=== PATIENT | female | born 2005 | race Caucasian/White ===

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

== ENCOUNTER 2024-09-20 07:58 | Inpatient (IN) | payer OTHER ==
--- NOTE | 2024-09-20 08:05 | P.HPOB ---
History of Present Illness H&P Date: 09/20/24 Chief Complaint: Medical induction of labor Ms. Peters is a 19 year old at 37 weeks and 0 days gestation with DONTRELL of 10/11/2024 by LMP consistent with 9 week US who presents for medical induction of labor for severe IUGR with abdominal circumference in the 1st percentile (efw 9.5%). The fetus has undergone surveillance which has been reassuring. work-up: blood type O positive, antibody screen negative, rubella non- immune, VDRL non-reactive, HBsAg negative, HIV negative, HCV non-reactive, gonorrhea negative, chlamydia negative, 1 hour GTT wnl. GBS positive. Past Medical History Past Medical History: Asthma, GERD/Reflux Additional Past Medical History / Comment(s): gallstones History of Any Multi-Drug Resistant Organisms: None Reported Past Surgical History: Adenoidectomy, Tonsillectomy Additional Past Surgical History / Comment(s): Ear tubes. Past Anesthesia/Blood Transfusion Reactions: No Reported Reaction Past Psychological History: ADD/ADHD, Depression Additional Psychological History / Comment(s): ADHD Past Alcohol Use History: None Reported Additional Past Alcohol Use History / Comment(s): father smokes but outside only Past Drug Use History: None Reported - Past Family History Father Family Medical History: Hypertension Mother Family Medical History: Fibromyalgia Additional Family Medical History / Comment(s): Mother: bipolar, anxiety, OCD. herniated disk Medications and Allergies Home Medications Medication Instructions Recorded Confirmed Type Albuterol Inhaler [Ventolin Hfa 2 puff INHALATION RT-Q6H PRN 08/14/18 08/14/18 History Inhaler] Beclomethasone Dipropionate [Qvar 1 puff INHALATION RT-DAILY 08/14/18 08/14/18 History 80 mcg] Cetirizine HCl [Zyrtec] 10 mg PO DAILY 08/14/18 08/14/18 History Montelukast [Singulair] 10 mg PO HS 08/14/18 08/14/18 History Omeprazole 20 mg PO DAILY 08/14/18 08/14/18 History Venlafaxine HCl ER [Effexor Xr] 37.5 mg PO DAILY 08/14/18 08/14/18 History Allergies Allergy/AdvReac Type Severity Reaction Status Date / Time No Known Allergies Allergy Verified 08/14/18 20:44 Exam Focused physical exam is performed. This is a healthy-appearing in no apparent distress. Breathing is non-labored. Abdomen is gravid and non-tender. Cervical exam is closed/long/high. Extremities non-tender and non-edematous. heart tones are reactive and reassuring. Assessment and Plan Assessment: 19 year old at 37 weeks gestation here for medical induction of labor for IUGR Plan: Admit, regular diet, plan for Dilapan-S x24 hours. Will then move to oxytocin and AROM tomorrow morning.
[2024-09-20 09:33] LABS: Basophils % (A) 0 %; Eosinophils % (A) 0 %; HCT 38.3 % (34.0-46.0); HGB 12.4 gm/dL (11.4-16.0); Lymphocytes # (A) 1.3 k/uL (1.0-4.8); Lymphocytes % (A) 13 %; MCH 29.7 pg (25.0-35.0); MCHC 32.4 g/dL (31.0-37.0); MCV 91.5 fL (80.0-100.0); Mean Platelet Volume 7.4; Monocytes # (A) 0.9 k/uL (0-1.0); Monocytes % (A) 9 %; Neutrophils # (A) 7.2 k/uL (1.3-7.7); Neutrophils % (A) 74 %; Platelet Count 262 k/uL (150-450); RBC 4.18 m/uL (3.80-5.40); RDW 12.7 % (11.5-15.5); WBC 9.8 k/uL (4.0-11.0)
[2024-09-20] MEDS: LACTATED RINGERS 1,000 ML IV SCH (09:33)
[2024-09-20] MEDS: OXYTOCIN 30 UNITS/500 ML NS 30 UNIT in SALINE 1 500ML.BAG IV SCH (13:40)
[2024-09-20] MEDS ORDERED: CARBOPROST TROMETHAMINE 250 MCG/ML 1 ML AMP IM PRN (15:10)
[2024-09-20] MEDS ORDERED: miSOPROStoL 200 MCG TAB RECTAL PRN (15:10)
[2024-09-20] MEDS ORDERED: TRANEXAMIC 1,000 MG/100ML-NACL 1,000 MG in EMPTY BAG 1 BAG IV PRN (15:10)
[2024-09-20] MEDS ORDERED: TERBUTALINE 1 MG/ML VIAL SQ PRN (15:10)
[2024-09-20] MEDS ORDERED: miSOPROStoL 200 MCG TAB PO PRN (15:10)
[2024-09-20] MEDS ORDERED: LIDOCAINE 0.5% (PF) 5 MG/ML (50 ML SDV) SQ PRN (15:10)
[2024-09-20] MEDS ORDERED: OXYTOCIN 10 UNIT/ML 1 ML VIAL IM PRN (15:10)
[2024-09-20] MEDS ORDERED: METHYLERGONOVINE 0.2 MG/ML 1 ML AMP IM PRN ×2 (15:10→23:08)
[2024-09-20] MEDS ORDERED: OXYTOCIN 30 UNITS/500 ML NS 30 UNIT in SALINE 1 500ML.BAG IV SCH (15:15)
[2024-09-20] MEDS: PENICILLIN G POTASSIUM 5,000,000 UNIT in DEXTROSE 5% IN WATER 100 ML IVPB STA (16:10)
[2024-09-20] MEDS ORDERED: SODIUM CHLORIDE 0.9% 250 ML BAG ONE (18:28)
[2024-09-20] MEDS ORDERED: ROPIVACAINE 5 MG/ML 30 ML VIAL ONE (18:28)
[2024-09-20] MEDS ORDERED: fentaNYL (PF) 50 MCG/ML 5 ML AMP ONE (18:28)
[2024-09-20] MEDS: PENICILLIN G POTASSIUM 2,500,000 UNIT in DEXTROSE 5% IN WATER 100 ML IVPB SCH (20:24)
[2024-09-20] MEDS: CITRIC ACID-SODIUM CITRATE 15 ML CUP PO ONE (23:17)
[2024-09-20] MEDS ORDERED: ONDANSETRON 4 MG/2 ML VIAL ONE (23:23)
[2024-09-20] MEDS ORDERED: PHENYLEPHRINE-0.9% NACL SYG 1,000 MCG/10 ML SYRINGE ONE (23:23)
[2024-09-20] MEDS ORDERED: MORPHINE SULFATE (PF) 0.3 MG/0.3 ML SYR ONE (23:23)
[2024-09-20] MEDS ORDERED: KETOROLAC 15 MG/ML 1 ML VIAL ONE (23:23)
[2024-09-20] MEDS ORDERED: OXYTOCIN 30 UNITS/500 ML NS BAG IV ONE (23:23)
[2024-09-21] MEDS ORDERED: diphenhydrAMINE 50 MG/ML 1 ML VIAL IVP PRN ×2 (00:12)
[2024-09-21] MEDS ORDERED: NALOXONE 0.4 MG/ML 1 ML VIAL IV PRN (00:12)
[2024-09-21] MEDS ORDERED: diphenhydrAMINE 25 MG CAP PO PRN (00:12)
[2024-09-21] MEDS ORDERED: diphenhydrAMINE 50 MG CAP PO PRN (00:12)
[2024-09-21] MEDS ORDERED: SIMETHICONE 80 MG CHEWABLE PO PRN (00:12)
[2024-09-21] MEDS ORDERED: METOCLOPRAMIDE 5 MG/ML 2 ML VIAL IVP PRN (00:12)
[2024-09-21] MEDS ORDERED: ZOLPIDEM 5 MG TAB PO PRN (00:12)
[2024-09-21] MEDS ORDERED: ONDANSETRON 4 MG/2 ML VIAL IVP PRN (00:12)
--- NOTE | 2024-09-21 00:12 | P.OP ---
Date of Procedure: 09/21/24 Preoperative Diagnosis: 1. Term IUP at 37 weeks 2. Persistent Category II FHTs remote from delivery Postoperative Diagnosis: Same Procedure(s) Performed: Primary Lower Transverse Section Implants: None Anesthesia: epidural Surgeon: Fauzia Moreno Rn Occupational Health #1: Lyndsey Barnard Estimated Blood Loss (ml): 270 IV fluids (ml): 700 Urine output (ml): 400 Pathology: other (placenta) Condition: stable Disposition: floor Indications for Procedure: Ms. Peters is a 19 year old at 37 weeks who presented to labor and delivery for induction of labor for IUGR. Dilapan-S was inserted with AROM noted at the time of insertion. Pitocin was titrated per protocol. When the Dilapan-S was removed, the patient was dilated to 4 centimeters. Over the course of the next few hours, the patient began to develop intermittent lates and variables. Category II FHT managed following algorithm including initiation of corrective measure repositioning the patient, bolusing IV fluids, and pausing the pitocin. With the persistent presence of recurrent lates, a patient-centered huddle was held and the need for an expedited deliver was discussed with the patient. It is was clinical recommendation to proceed with the delivery and after questions were answered to the patient agrees to proceed with the recommended plan. The risks, benefits, and alternatives to section were discussed with the patient including risk of bleeding, infection, damage to surrounding structures including bladder/bowels/ureters, and post-operative VTE. The patient understands these risks and desires to proceed with section. Operative Findings: Viable male in cephalic presentation. Colorless amniotic fluid. Apgars 7/9. Weight 5 pounds and 13 ounces (2640 grams). Normal uterus, fallopian tubes, and ovaries. Description of Procedure: The patient was taken back to the operating room where spinal anesthesia was fou nd to be adequate. Two grams of Ancef were given for infection prophylaxis. Vaginal preparation was done. She was prepared and draped in the dorsal supine position with a leftward tilt. A Pfannenstiel skin incision was made with the scalpel. The incision was carried down to the fascia with a bovie. The fascia was incised and extended laterally with Matthews scissors. The superior aspect of the fascia was grasped with the Srinath clamps. The underlying rectus muscle was dissected off sharply with Matthews scissors. In a similar fashion, the inferior aspect of the fascia was elevated with Srinath clamps and the rectus muscle and pyramidalis were dissected off. Excellent hemostasis was achieved with the bovie. The rectus muscle was in the midline down to the level of the pubic symphysis. Pre-peritoneal fatty tissue was bluntly dissected to expose the peritoneum. The peritoneum was found to be free of adherent bowel and entered sharply with Matthews scissors. The peritoneal incision was extended superiorly and inferiorly to the bladder reflection with good visualization of the bladder. The bladder blade was inserted and vesicouterine peritoneum was identified. Intraabdominal survey revealed scant, clear peritoneal fluid and the thinned-out lower uterine segment. The vesicouterine peritoneum was opened with scissors and the bladder flap was developed. The bladder blade was repositioned to keep the bladder out of the operative field. The lower uterine segment was incised with a scalpel. The amniotic sac was ruptured with an Allis clamp and clear fluid was noted. The uterine incision was extended bluntly with lateral and upward traction. The fetus was in cephalic presentation. The head was elevated out of the pelvis with special attention paid to avoid using the uterine incision as a fulcrum. Gentle fundal pressure was applied once the head was brought into the incision. The infant was delivered with no difficulty and was noted to be crying spontaneously. The mouth and nose were suctioned with a bulb. The cord was clamped and cut. The was handed off to the knitted cloth examiner. IV oxytocin was initiated to facilitate uterine contractions. The placenta was delivered intact with manual massage of uterine fundus. The uterus was then exteriorized and the inside of the uterus was gently wiped with a lap sponge to assure complete removal of placental membranes. The uterine incision was closed with 0-Vicryl suture in a running locked fashion. The ovaries and tubes were found to be normal. The uterus, tubes, and ovaries were then gently returned to the abdominal cavity. The abdomen was copiously suction irrigated. The uterine incision was reinspected and excellent hemostasis was noted. The fascial layer was closed with a 0-Vicryl suture. The subcutaneous tissue was reapproximated with 2-0 Plain Gut. The skin was closed with 4-0 Monocryl in a subcuticular fashion.The patient tolerated the procedure well. All the counts were correct times two. The patient was taken to the recovery room in a stable condition. A physician surgical elastic knitter was utilized for the entire procedure due to the need for tissue retraction, dissection of vital structures, prevention and manag ement of blood loss, and reduction in overall operative and anesthesia time as is the standard of care.
[2024-09-21] MEDS: KETOROLAC 15 MG/ML 1 ML VIAL IVP SCH (00:52)
[2024-09-21] MEDS: ACETAMINOPHEN TAB 500 MG TAB PO SCH (02:13)
[2024-09-21] MEDS: LACTATED RINGERS 1,000 ML IV SCH (06:30)
[2024-09-21] MEDS: SENNOSIDES-DOCUSATE SODIUM 1 EACH TAB PO SCH (08:40)
--- NOTE | 2024-09-21 09:12 | P.PNOBGPC ---
Subjective - Subjective Principal diagnosis: s/p primary section Interval history: The patient is doing well this morning and had no acute events overnight. She has no complaints this morning. She reports minimal lochia, passing flatus, ambulating, and eating/drinking without nausea or vomiting. Maldonado catheter just removed, awaiting spontaneous void. She is breast feeding her infant without difficulty. She denies chest pain, shortness of breathing, fevers, or chills overnight. She denies pain or swelling in the legs. Patient reports: Reports appetite normal, Reports pain well controlled, Reports ambulating normally : doing well, nursing well Objective - Vital Signs Latest vital signs: Vital Signs Temp Pulse Resp BP Pulse Ox 09/21/24 04:10 97.4 F L 85 16 110/71 96 09/21/24 02:10 97.5 F L 92 16 105/57 99 09/21/24 01:55 90 16 103/66 99 09/21/24 01:40 88 16 105/57 98 09/21/24 01:25 98.9 F 100 16 97/53 95 09/21/24 01:10 101 H 16 109/57 96 09/21/24 00:55 93 16 115/65 96 09/21/24 00:40 91 16 105/63 97 09/21/24 00:25 105 H 16 100/60 96 09/21/24 00:10 98.1 F 102 H 16 99/59 97 Intake and Output 09/20/24 09/21/24 09/21/24 22:59 06:59 14:59 Output Total 300 1180 Balance -300 -1180 Output: Urine 300 800 Uretheral (Maldonado) 700 Output, Quantitative 380 Blood Loss Other: Voiding Method Indwelling Catheter - Exam Extremities: Present: normal Abdomen: Present: normal appearance, soft Incision: Present: normal, dressed Uterus: Present: normal, firm Assessment and Plan Assessment: 19 year old now POD#1 s/p primary section for persistent Cat II FHTs remote from delivery Plan: 1. Postoperative. Patient doing well, meeting milestones appropriately. 2. Viable male at bedside. Breast feeding, doing well. Needs circ prior to discharge. Dispo: Anticipate discharge home tomorrow.
--- NOTE | 2024-09-21 10:38 | P.PN ---
Progress Note - Text Progress Note Date: 09/21/24 (3422) Anesthesia Postop day 1 Subjective: Status Post section with Duramorph. Patient seen and examined. Doing well without complaint. VAS 2 out of 10. No nausea vomiting or pruritus. Denies fever. Gross lower extremity strength intact. Spinal site intact without induration. Without apparent anesthetic complications. Objective: Vital signs reviewed Heart: Regular Rate Lungs: Good chest excursion Abdomen: Appears nondistended Assessment: Status post section with Duramorph postop day 1 Plan: 1. Continue current care with your medical management. Anticipated end to the duration of the Duramorph around surgery time today. You may see increased pain needs around this time. 2. This note was dictated using Rabbit software. Please be advised there is a potential for misspellings or errors in real estate sales supervisor.
[2024-09-21] MEDS: MEASLES-MUMPS-RUBELLA VACC/PF 12,500 UNIT/0.5 ML VIAL SQ ONE (14:54)
[2024-09-22] MEDS: IBUPROFEN 800 MG TAB PO SCH (00:08)
[2024-09-22 05:28] LABS: Basophils % (A) 0 %; Eosinophils # (A) 0.1 k/uL (0-0.7); Eosinophils % (A) 1 %; HCT 31.5 % (34.0-46.0); HGB 10.3 gm/dL (11.4-16.0); Lymphocytes # (A) 2.2 k/uL (1.0-4.8); Lymphocytes % (A) 15 %; MCH 30.1 pg (25.0-35.0); MCHC 32.8 g/dL (31.0-37.0); MCV 91.8 fL (80.0-100.0); Mean Platelet Volume 8.1; Monocytes # (A) 0.7 k/uL (0-1.0); Monocytes % (A) 5 %; Neutrophils % (A) 77 %; Platelet Count 234 k/uL (150-450); RBC 3.43 m/uL (3.80-5.40); RDW 12.8 % (11.5-15.5); WBC 14.2 k/uL (4.0-11.0)
[2024-09-22 08:16] VITALS: BP 128/87; PULSE 97; RESP 16; TEMP 97.5
--- NOTE | 2024-09-22 08:17 | P.DS ---
Providers Date of admission: 09/20/24 07:58 Expected date of discharge: 09/22/24 Attending physician: Fauzia Moreno MD Primary care physician: Stated None Hospital Course: 19 year old now POD#2 s/p primary section for non-reassuring heart tones remote from delivery. Her section was uncomplicated and her postoperative course has been unremarkable. The patient is doing well this morning and had no acute events overnight. She has no complaints this morning. She reports minimal lochia, passing flatus, voiding without difficulty, ambulating, and eating/drinking without nausea or vomiting. doing well at bedside, s/p circumcision. She denies chest pain, shortness of breathing, fevers, or chills overnight. She denies pain or swelling in the legs. Postoperative restrictions are reviewed with the patient including pelvic rest for 6 weeks, no lifting heavier than 15 pounds for 6 weeks. The patient is encouraged to call the office if she experiences any heavy bleeding, foul- smelling discharge, breast complaints, or any if she has any other concerns. She will follow up in the office with in 2 weeks for postoperative exam. She will go home with Motrin and Tylenol as needed for pain. All questions are answered. Assessment: 19 year old POD#2 s/p primary section for nrFHTs Patient Condition at Discharge: Good Plan - Discharge Summary Discharge Rx Participant: No New Discharge Prescriptions: New Acetaminophen Tab [Tylenol] 650 mg PO Q6H PRN #30 tab PRN Reason: Mild Pain (Scale 1 To 3) Ibuprofen [Motrin] 600 mg PO Q6HR PRN #30 tab PRN Reason: Mild Pain (Scale 1 To 3) No Action Omeprazole 20 mg PO DAILY Discharge Medication List Omeprazole 20 mg PO DAILY 08/14/18 [History] Acetaminophen Tab [Tylenol] 650 mg PO Q6H PRN #30 tab 09/22/24 [Rx] Ibuprofen [Motrin] 600 mg PO Q6HR PRN #30 tab 09/22/24 [Rx] Follow up Appointment(s)/Referral(s): Fauzia Moreno MD [STAFF PHYSICIAN] - 11/11/24 2:30 pm Activity/Diet/Wound Care/Special Instructions: Instructions 1. Do not begin any exercise program for 3 weeks. 2. Do not resume sexual relations for 6 weeks or longer if uncomfortable. 3. You may take tub baths or showers at any time. 4. You may use tampons if desired after 6 weeks. 5. Keep any areas repaired with stitches clean and dry. 6. If you are not nursing, wear a good fitting, supportive bra during the day and limit fluid intake for at least 1 week to prevent breast engorgement. 7. Call the office, , within the next week to make appointment for your 6 week checkup if it has not already been made. 8. Report any of the following occurrences to the doctor promptly: a. Heavy, excessive bleeding b. Chills, fever c. Burning or frequency of urination d. Pain or redness and breasts if nursing e. Increasing pain or swelling of vulva (stitches). In addition to the above instructions, the following additional should be followed: 1. No heavy lifting or straining (exercising) until after 6 week checkup. 2. Keep abdominal incision clean and dry: You may wear a dressing if more comfortable. 3. Make office appointment for 2 weeks after delivery date. Discharge Disposition: HOME SELF-CARE
== END 2024-09-22 11:50 | disposition home or self-care (01) | DRG 540 ==
LOC: 4FBP 07:58
PROVIDERS: ADMIT Obstetrics & Gynecology; ATTEND Obstetrics & Gynecology
PROC: 4A0HXCZ Measurement of Products of Conception, Cardiac Rate, External Approach (ICD-10-PCS; 2024-09-20)
PROC: 10D00Z1 Extraction of Products of Conception, Low, Open Approach (ICD-10-PCS; principal; 2024-09-20 23:23)
DX: O76 Abnormality in fetal heart rate and rhythm complicating labor and delivery (principal); F90.9 Attention-deficit hyperactivity disorder, unspecified type; O99.824 Streptococcus B carrier state complicating childbirth; O36.5930 Maternal care for other known or suspected poor fetal growth, third trimester, not applicable or unspecified; J45.909 Unspecified asthma, uncomplicated; O99.62 Diseases of the digestive system complicating childbirth; O99.344 Other mental disorders complicating childbirth; F32.A Depression, unspecified; K80.20 Calculus of gallbladder without cholecystitis without obstruction; O99.52 Diseases of the respiratory system complicating childbirth; Z37.0 Single live birth; Z3A.37 37 weeks gestation of pregnancy; Z79.899 Other long term (current) drug therapy; Z82.49 Family history of ischemic heart disease and other diseases of the circulatory system
CPT/HCPCS: 85025; 86850; 86900; 86901; 88307; 90707

== ENCOUNTER 2024-11-20 07:14 | Emergency (ER) | payer OTHER ==
[2024-11-20 07:20] VITALS: RESP 16
--- NOTE | 2024-11-20 07:35 | ED ---
Head Injury HPI - General Chief complaint: Head Injury Stated complaint: fell and hit back of head Time Seen by Provider: 11/20/24 07:16 Source: patient, family, RN notes reviewed Mode of arrival: ambulatory Limitations: no limitations - History of Present Illness Initial comments: 19-year-old female presents emergency department complaint of head trauma. Patient states she went outside slipped on the cement stairs striking her head on the cement. Patient had no loss conscious but felt very dazed, complains of severe headache dizziness and nausea. Patient states her vision was initially blurred family states she just seems off and her usual self. Patient denies any neck pain no other injuries from the fall. She denies any blood thinners. - Related Data Home Medications Medication Instructions Recorded Confirmed Omeprazole 20 mg PO DAILY 08/14/18 09/20/24 Previous Rx's Medication Instructions Recorded Acetaminophen Tab [Tylenol] 650 mg PO Q6H PRN #30 tab 09/22/24 Ibuprofen [Motrin] 600 mg PO Q6HR PRN #30 tab 09/22/24 Allergies/Adverse reactions: Allergies Allergy/AdvReac Type Severity Reaction Status Date / Time No Known Allergies Allergy Verified 11/20/24 07:20 Review of Systems ROS Statement: Those systems with pertinent positive or pertinent negative responses have been documented in the HPI. ROS Other: All systems not noted in ROS Statement are negative. Past Medical History Past Medical History: Asthma, GERD/Reflux Additional Past Medical History / Comment(s): gallstones History of Any Multi-Drug Resistant Organisms: None Reported Past Surgical History: Adenoidectomy, Tonsillectomy Additional Past Surgical History / Comment(s): Ear tubes. Past Anesthesia/Blood Transfusion Reactions: No Reported Reaction Past Psychological History: ADD/ADHD, Depression Smoking Status: Never smoker Past Alcohol Use History: None Reported Past Drug Use History: None Reported - Past Family History Father Family Medical History: Hypertension Mother Family Medical History: Fibromyalgia Additional Family Medical History / Comment(s): Mother: bipolar, anxiety, OCD. herniated disk General Exam Limitations: no limitations General appearance: alert, in no apparent distress Head exam: Present: atraumatic, normocephalic, normal inspection Eye exam: Present: normal appearance, PERRL, EOMI. Absent: scleral icterus, conjunctival injection, periorbital swelling ENT exam: Present: normal exam, normal oropharynx, mucous membranes moist, TM's normal bilaterally Neck exam: Present: normal inspection, full ROM. Absent: tenderness, meningismus, lymphadenopathy Respiratory exam: Present: normal lung sounds bilaterally. Absent: respiratory distress, wheezes, rales, rhonchi, stridor Cardiovascular Exam: Present: regular rate, normal rhythm, normal heart sounds. Absent: systolic murmur, diastolic murmur, rubs, gallop, clicks Neurological exam: Present: alert, oriented X3, CN II-XII intact, reflexes normal. Absent: motor sensory deficit Skin exam: Present: warm, dry, intact, normal color. Absent: rash Course Vital Signs 11/20/24 11/20/24 07:17 07:33 Temperature 98.5 F Pulse Rate 108 H 103 H Respiratory 16 16 Rate Blood Pressure 142/90 146/94 O2 Sat by Pulse 99 98 Oximetry Medical Decision Making - Medical Decision Making Was pt. sent in by a medical professional or institution (, PA, AIR TECHNICIAN, urgent care, hospital, or fpc...) When possible be specific @ -No Did you speak to anyone other than the patient for history (EMS, parent, family, police, friend...)? What history was obtained from this source @ -No Did you review nursing and triage notes (agree or disagree)? Why? @ -I reviewed and agree with nursing and triage notes Were old charts reviewed (outside hosp., previous admission, EMS record, old EKG, old radiological studies, urgent care reports/EKG's, fpc records)? Report findings @ -No old charts were reviewed Differential Diagnosis (chest pain, altered mental status, abdominal pain women, abdominal pain men, vaginal bleeding, weakness, fever, dyspnea, syncope, headache, dizziness, GI bleed, back pain, seizure, CVA, palpatations, mental health, musculoskeletal)? @ -Differential Headache: Migraine, tension, cluster, carbon monoxide, central venous thrombosis, pension karma temporal arteritis, acute closure glaucoma, intercranial hemorrhage, mastoiditis, sinusitis, head injury, this is not meant to be an all-inclusive list. EKG interpreted by me (3pts min.). @ -[None X-rays interpreted by me (1pt min.). @ -None done CT interpreted by me (1pt min.). @ -CT brain showing no acute intracranial hemorrhage there is a moderate size posterior scalp hematoma U/S interpreted by me (1pt. min.). @ -None done What testing was considered but not performed or refused? (CT, X-rays, U/S, labs)? Why? @ -None What meds were considered but not given or refused? Why? @ -None Did you discuss the management of the patient with other professionals (professionals i.e. Dr., PA, AIR TECHNICIAN, lab, RT, psych nurse, social work administrator, supervisor files, teacher, cash management officer, porter sample case)? Give summary @ -No Was smoking cessation discussed for >3mins.? @ -No Was critical care preformed (if so, how long)? @ -No Were there social determinants of health that impacted care today? How? (Homelessness, low income, unemployed, alcoholism, drug addiction, transportation, low edu. Level, literacy, decrease access to med. care, group home, rehab)? @ -No Was there de-escalation of care discussed even if they declined (Discuss DNR or withdrawal of care, Hospice)? DNR status @ -No What co-morbidities impacted this encounter? (DM, HTN, Smoking, COPD, CAD, Cancer, CVA, ARF, Chemo, Hep., AIDS, mental health diagnosis, sleep apnea, morbid obesity)? @ -None Was patient admitted / discharged? Hospital course, mention meds given and route, prescriptions, significant lab abnormalities, going to OR and other pertinent info. @ -Discharge patient presented after a fall, head injury. Patient did have CT given severe mechanism of injury and change in mentation. Patient CT shows moderate hematoma patient does have concussion symptoms will be discharged in stable condition return parameters tevin. Undiagnosed new problem with uncertain prognosis? @ -No Drug Therapy requiring intensive monitoring for toxicity (Heparin, Nitro, Insulin, Cardizem)? @ -No Were any procedures done? @ -No Diagnosis/symptom? @ -Scalp hematoma concussion Acute, or Chronic, or Acute on Chronic? @ -Acute Uncomplicated (without systemic symptoms) or Complicated (systemic symptoms)? @ -Uncomplicated Side effects of treatment? @ -No Exacerbation, Progression, or Severe Exacerbation? @ -No Poses a threat to life or bodily function? How? (Chest pain, [place], [place], pneumonia, PE, COPD, DKA, ARF, appy, cholecystitis, CVA, Diverticulitis, Homicidal, Suicidal, threat to staff... and all critical care pts) @ -No Disposition Clinical Impression: Concussion without loss of consciousness, Hematoma of scalp Disposition: HOME SELF-CARE Condition: Stable Instructions (If sedation given, give patient instructions): Concussion (ED) Additional Instructions: Please return to the Emergency Department if symptoms worsen or any other concerns. Is patient prescribed a controlled substance at d/c from ED?: No Referrals: Matthieu Mishra MD [Primary Care Provider] - 1-2 days Time of Disposition: 08:51
--- NOTE | 2024-11-20 08:47 | CT ---
EXAMINATION TYPE: CT brain wo con DATE OF EXAM: 11/20/2024 COMPARISON: None. CLINICAL INDICATION: Female, 19 years old with history of trauma; [facility], Fell on ice this am, hit head on concrete step, headache. TECHNIQUE: CT of the brain performed without contrast with sagittal and coronal reformats. CT DLP: 1095.9 mGycm Automated exposure control for dose reduction was used. FINDINGS: There is moderate size acute slightly left lower occipital scalp hematoma axial image 30. T he adjacent calvarium is intact. There is no acute intracranial hemorrhage, mass effect, or midline shift identified. The ventricles and sulci are within normal limits in size. Bradley-white matter differentiation is maintained. The chris bes are intact and the visualized sinuses are clear. IMPRESSION: No acute intracranial hemorrhage or midline shift is seen. Moderate size acute posterior scalp hemato ma noted. [facility], , 11/20/2024 8:45 AM
[2024-11-20 09:23] VITALS: BP 114/79; PULSE 74; TEMP 98.3
== END 2024-11-20 09:23 | disposition home or self-care (01) ==
LOC: EC 07:14
DX: S06.0X0A Concussion without loss of consciousness, initial encounter (principal); S00.03XA Contusion of scalp, initial encounter; W18.00XA Striking against unspecified object with subsequent fall, initial encounter
CPT/HCPCS: 70450; 99283